=== PATIENT | male | born 1960 | race Caucasian/White ===

== ENCOUNTER 2017-03-27 21:42 | Inpatient (IN) | payer BC ==
[~2017-03-27] VITALS: Ht 175.3 cm; Wt 96.6 kg
[2017-03-27 23:54] LABS: HEMATOCRIT 41.5 % (42.0-54.0); HEMOGLOBIN 13.8 g/dL (13.5-17.5); LYMPHOCYTES 9.1 % (15-50); MCH 29.6 pg (26.0-34.0); MCHC 33.3 g/dL (31.0-37.0); MCV 89.1 fL (80.0-100.0); MEAN PLATELET VOLUME 8.8 fL (7.4-10.4); NEUTROPHILS 83.5 % (40-80); PLATELET COUNT 207 10x3/uL (130-400); RBC 4.66 10x6/uL (4.20-6.10); RDW 13.3 % (11.5-14.5); WBC 4.1 10x3/uL (4.8-10.8)
[2017-03-28] LABS: INR 1.02 (0.85-1.17)
[2017-03-28 00:01] LABS: D-DIMER-QUANTITATIVE 0.63 ug/mLFEU (0.20-0.54)
[2017-03-28 00:03] LABS: ALBUMIN 3.5 g/dL (3.4-5.0); ALKALINE PHOSPHATASE 74 U/L (46-116); ALT (SGPT) 36 U/L (10-68); CALC OSMOLALITY 273 mosm/kg (275-300); CALCIUM 8.8 mg/dL (8.5-10.1); CARBON DIOXIDE 29.5 mmol/L (21.0-32.0); CHLORIDE - SERUM 100 mmol/L (98-107); CREATININE - SERUM 1.2 mg/dL (0.6-1.3); GLUCOSE 110 mg/dL (74-106); POTASSIUM - SERUM 5.3 mmol/L (3.5-5.1); PROTEIN - SERUM 7.5 g/dL (6.4-8.2); SODIUM 136 mmol/L (136-145); UREA NITROGEN 16 mg/dL (7-18); eGFR NON AFRICAN AMERICAN 66 mL/min (90-120)
[2017-03-28 00:16] LABS: CREATINE KINASE 177 UL (21-232); MAGNESIUM - SERUM 1.8 mg/dL (1.8-2.4); PRO BNP 29 pg/mL (0-125); TROPONIN-I < 0.017 ng/mL (0.000-0.060)
[2017-03-28] MEDS ORDERED: LISINOPRIL10 MG PO (02:34)
[2017-03-28] MEDS ORDERED: CYCLOBENZAPRINE10 MG PO (02:35)
[2017-03-28] MEDS ORDERED: PROAIR HFA8.5 GM INH (02:36)
[2017-03-28 03:46] VITALS: BP 140/85; BMI 31.5
[2017-03-28 05:32] LABS: BASOPHILS 0.2 % (0-2); EOSINOPHILS 0 % (0-7); HEMATOCRIT 43.1 % (42.0-54.0); HEMOGLOBIN 14.2 g/dL (13.5-17.5); LYMPHOCYTES 12.9 % (15-50); MCH 30.5 pg (26.0-34.0); MCHC 32.9 g/dL (31.0-37.0); MEAN PLATELET VOLUME 9.6 fL (7.4-10.4); MONOCYTES 8.8 % (2-11); NEUTROPHILS 78.1 % (40-80); PLATELET COUNT 219 10x3/uL (130-400); RBC 4.65 10x6/uL (4.20-6.10); RDW 13.7 % (11.5-14.5); WBC 4.1 10x3/uL (4.8-10.8)
[2017-03-28 05:46] LABS: MCV 92.7 fL (80.0-100.0)
[2017-03-28 06:10] LABS: ALBUMIN 3.5 g/dL (3.4-5.0); BILIRUBIN - TOTAL 0.21 mg/dL (0.2-1.3); CARBON DIOXIDE 27.6 mmol/L (21.0-32.0); CREATININE - SERUM 1.2 mg/dL (0.6-1.3); POTASSIUM - SERUM 4.6 mmol/L (3.5-5.1); PROTEIN - SERUM 7.5 g/dL (6.4-8.2)
[2017-03-28 06:33] VITALS: BP 140/85
[2017-03-28 09:20] VITALS: BP 105/77
[2017-03-28 12:20] VITALS: BP 115/80
[2017-03-28 12:29] VITALS: BMI 31.4
[2017-03-28 16:31] VITALS: Ht 175.3 cm; Wt 96.6 kg
[2017-03-28 16:34] VITALS: BP 124/75
[2017-03-28 20:54] VITALS: BP 125/76
[2017-03-29 00:53] VITALS: BP 131/52
[2017-03-29 04:00] VITALS: BP 128/76
[2017-03-29 08:34] VITALS: BP 119/75
[2017-03-29 12:42] VITALS: BP 124/76
[2017-03-29 20:00] VITALS: BP 141/73
[2017-03-30 06:06] LABS: BASOPHILS 0 % (0-2); EOSINOPHILS 0 % (0-7); HEMATOCRIT 40.2 % (42.0-54.0); HEMOGLOBIN 13.1 g/dL (13.5-17.5); IMMATURE GRANULOCYTES 0.1 % (0-5); LYMPHOCYTES 7.3 % (15-50); MCHC 32.6 g/dL (31.0-37.0); MEAN PLATELET VOLUME 9.3 fL (7.4-10.4); MONOCYTES 4.6 % (2-11); PLATELET COUNT 236 10x3/uL (130-400); RBC 4.37 10x6/uL (4.20-6.10); RDW 13.6 % (11.5-14.5); WBC 8.6 10x3/uL (4.8-10.8)
[2017-03-30 06:19] LABS: CALC OSMOLALITY 280 mosm/kg (275-300); CALCIUM 8.4 mg/dL (8.5-10.1); CARBON DIOXIDE 26.4 mmol/L (21.0-32.0); CHLORIDE - SERUM 102 mmol/L (98-107); GLUCOSE 141 mg/dL (74-106); POTASSIUM - SERUM 4.1 mmol/L (3.5-5.1); SODIUM 138 mmol/L (136-145); UREA NITROGEN 22 mg/dL (7-18); eGFR NON AFRICAN AMERICAN 81 mL/min (90-120)
[2017-03-30 08:04] VITALS: BP 121/77
[2017-03-30 12:23] VITALS: BP 127/69
[2017-03-30] MEDS ORDERED: OMNICEF300 MG PO (13:46)
[2017-03-30] MEDS ORDERED: PREDNISONE20 MG PO (13:46)
[2017-03-30] MEDS ORDERED: TAMIFLU75 MG PO (13:47)
[2017-03-30] MEDS ORDERED: VIBRAMYCIN 100100 MG PO (13:47)
[2017-04-03 21:08] LABS: IMMUNOGLOBULIN E 80 IU/mL (0-100)
== END 2017-03-30 15:55 | disposition home or self-care (01) | DRG 193 ==
LOC: D.ER 21:42 → D.MS 03-28 01:54
PROVIDERS: Family Medicine; Internal Medicine Nephrology; Internal Medicine Pulmonary Disease
DX: J11.00 Influenza due to unidentified influenza virus with unspecified type of pneumonia (principal); J96.21 Acute and chronic respiratory failure with hypoxia; J44.1 Chronic obstructive pulmonary disease with (acute) exacerbation; J44.0 Chronic obstructive pulmonary disease with (acute) lower respiratory infection; J98.11 Atelectasis; I10 Essential (primary) hypertension; J20.9 Acute bronchitis, unspecified; J98.4 Other disorders of lung; E87.5 Hyperkalemia; Z87.891 Personal history of nicotine dependence

== ENCOUNTER → 2017-09-12 12:42 | Outpatient (CLI) | payer BC ==
[2017-03-28 16:31] VITALS: BMI 31.4
[~2017-09-12 12:42] MED LIST: CYCLOBENZAPRINE10 MG PO; LISINOPRIL10 MG PO; OMNICEF300 MG PO; PREDNISONE20 MG PO; PROAIR HFA8.5 GM INH; TAMIFLU75 MG PO; VIBRAMYCIN 100100 MG PO
== END | disposition home or self-care (01) ==
LOC: D.RT 12:42
DX: J44.9 Chronic obstructive pulmonary disease, unspecified (principal); J98.11 Atelectasis

== ENCOUNTER 2018-09-05 15:10 | Inpatient (IN) | payer BC ==
[~2018-09-05] VITALS: Ht 175.3 cm; Wt 92.4 kg
--- NOTE | 2018-09-05 15:42 | NUR ---
RONNIE SPECIMEN OBTAINED, LABELED AT BS AND SENT TO LAB. LAB AT FOR LAB DRAW
[2018-09-05 15:50] LABS: BASOPHILS 0.2 % (0-2); EOSINOPHILS 3.8 % (0-7); HEMATOCRIT 34.3 % (42.0-54.0); HEMOGLOBIN 11.8 g/dL (13.5-17.5); IMMATURE GRANULOCYTES 0.2 % (0-5); LYMPHOCYTES 10.1 % (15-50); MCH 30.4 pg (26.0-34.0); MCHC 34.4 g/dL (31.0-37.0); MCV 88.4 fL (80.0-100.0); MEAN PLATELET VOLUME 8.9 fL (7.4-10.4); MONOCYTES 8.8 % (2-11); NEUTROPHILS 76.9 % (40-80); PLATELET COUNT 250 10x3/uL (130-400); RBC 3.88 10x6/uL (4.20-6.10); WBC 9.9 10x3/uL (4.8-10.8)
[2018-09-05 16:25] LABS: APPEARANCE CLEAR (CLEAR); BILIRUBIN NEGATIVE (NEGATIVE); COLOR YELLOW (YELLOW); GLUCOSE NEGATIVE (NEGATIVE); KETONE NEGATIVE (NEGATIVE); PROTEIN NEGATIVE (NEGATIVE); SPECIFIC GRAVITY 1.015 (1.005-1.020); UROBILINOGEN NORMAL (NORMAL)
[2018-09-05 16:26] LABS: NITRITE NEGATIVE (NEGATIVE); WHITE CELLS - URINE OCC /hpf (0-5)
[2018-09-05 16:27] LABS: BACTERIA FEW /hpf (NONE SEEN)
[2018-09-05 16:34] VITALS: BP 147/80
[2018-09-05 16:36] LABS: ALBUMIN 3.3 g/dL (3.4-5.0); ALKALINE PHOSPHATASE 85 U/L (46-116); ALT (SGPT) 32 U/L (10-68); BILIRUBIN - TOTAL 0.68 mg/dL (0.2-1.3); CALC OSMOLALITY 290 mosm/kg (275-300); CALCIUM 9.3 mg/dL (8.5-10.1); CARBON DIOXIDE 20.1 mmol/L (21.0-32.0); CHLORIDE - SERUM 97 mmol/L (98-107); CREATININE - SERUM 10.8 mg/dL (0.6-1.3); POTASSIUM - SERUM 5.5 mmol/L (3.5-5.1); PROTEIN - SERUM 6.9 g/dL (6.4-8.2); SODIUM 133 mmol/L (136-145); UREA NITROGEN 84 mg/dL (7-18); eGFR NON AFRICAN AMERICAN 5 mL/min (90-120)
--- NOTE | 2018-09-05 16:36 | NUR ---
TO CT VIA STRETCHER WITH DEPUTY ASSESSOR
[2018-09-05 16:37] LABS: GLUCOSE 78 mg/dL (74-106)
[2018-09-05 16:39] LABS: AMYLASE - SERUM 38 U/L (25-115); LIPASE 98 U/L (73-393); TROPONIN-I < 0.017 ng/mL (0.000-0.060)
--- NOTE | 2018-09-05 17:00 | NUR ---
BLADDER SCAN PERFORMED 999 + MLS. VONDA DE LEÓN INFORMED
[2018-09-05 17:13] VITALS: BP 139/71
[2018-09-05 17:19] VITALS: BP 145/73
[2018-09-05 17:51] VITALS: BP 129/76
[2018-09-05 18:02] LABS: APPEARANCE CLEAR (CLEAR); COLOR DK YELLOW (YELLOW); NITRITE POSITIVE (NEGATIVE)
[2018-09-05 18:03] LABS: BILIRUBIN NEGATIVE (NEGATIVE); GLUCOSE NEGATIVE (NEGATIVE); KETONE NEGATIVE (NEGATIVE); PROTEIN NEGATIVE (NEGATIVE); RED CELLS - URINE 25-50 /hpf (0-5); UROBILINOGEN NORMAL (NORMAL)
[2018-09-05 18:04] LABS: BACTERIA FEW /hpf (NONE SEEN)
[2018-09-05 18:31] VITALS: BP 131/70
--- NOTE | 2018-09-05 18:32 | NUR ---
FC EMPTIED 600ML
--- NOTE | 2018-09-05 19:06 | NUR ---
BS REPORT TO BOB FLOREZ BY SBAR FORMAT
--- NOTE | 2018-09-05 19:45 | NUR ---
700 ML OF CLEAR, STRAW YELLOW URINE EMPTIED FROM ROUSE.
[2018-09-05] MEDS ORDERED: SINGULAIR5 MG PO (20:04)
--- NOTE | 2018-09-05 20:10 | NUR ---
PT ARRIVED TO FLOOR BY BED, VITALS STABLE. NO S/S OF DISTRESS NOTED. PT STATES HE SEES DR WALTON REGULARLY HIS BOBBIN MARKER. ANSWERS QUESTIONS APPROPRIATELY. INTRODUCED SELF TO PT. PT DENIES FURTHER NEEDS. CALL LIGHT IN REACH.
--- NOTE | 2018-09-05 20:17 | NUR ---
PT REPORTS HAVING VERY LITTLE TO NO URINARY OUTPUT STARTING August.
[2018-09-05 20:25] VITALS: BP 137/75
--- NOTE | 2018-09-05 23:15 | NUR ---
2300 MLS CONCENTRATED YELLOW OUTPUT EMPTIED FROM ROUSE.
[2018-09-06] VITALS (7 sets, daily range): BP systolic 105–137; BP diastolic 69–77; Ht 175.3 cm; Wt 92.4 kg
--- NOTE | 2018-09-06 03:27 | NUR ---
I have reviewed this patient and I concur with the Shift Assessment completed by the Licensed Practical Nurse today this shift.
--- NOTE | 2018-09-06 06:22 | NUR ---
PT SITTING UP IN BED WITH EYES CLOSED, RR EVEN AND UNLABORED. NO S/S OF DISTRESS NOTED. BED IN LOW POSITION. CALL LIGHT IN REACH. WILL CTM.
[2018-09-06 06:26] LABS: BASOPHILS 0.5 % (0-2); EOSINOPHILS 8.3 % (0-7); HEMATOCRIT 35.5 % (42.0-54.0); HEMOGLOBIN 11.9 g/dL (13.5-17.5); IMMATURE GRANULOCYTES 0.2 % (0-5); LYMPHOCYTES 16.3 % (15-50); MCH 29.8 pg (26.0-34.0); MCHC 33.5 g/dL (31.0-37.0); MCV 88.8 fL (80.0-100.0); MEAN PLATELET VOLUME 9.3 fL (7.4-10.4); MONOCYTES 10.1 % (2-11); NEUTROPHILS 64.6 % (40-80); PLATELET COUNT 242 10x3/uL (130-400); RDW 14.1 % (11.5-14.5)
[2018-09-06 06:30] LABS: WBC 6.3 10x3/uL (4.8-10.8)
[2018-09-06 06:57] LABS: ALBUMIN 2.7 g/dL (3.4-5.0); BILIRUBIN - TOTAL 0.36 mg/dL (0.2-1.3); CARBON DIOXIDE 23.4 mmol/L (21.0-32.0); POTASSIUM - SERUM 5.4 mmol/L (3.5-5.1); PROTEIN - SERUM 6.8 g/dL (6.4-8.2)
[2018-09-06 06:58] LABS: CREATININE - SERUM 6.5 mg/dL (0.6-1.3)
--- NOTE | 2018-09-06 07:37 | NUR ---
PT AWAKE AND ORIENTED, LYING IN BED. C/O LEG CRAMPING, BUT STATES IT'S BETTER NOW AND HE CAN WAIT UNTIL HE RECIEVES HIS MORNING MEDICATIONS TO GET ANY PAIN MEDICINES. NO OTHER COMPLAINTS/CONCENRS/QUESTIONS AT THIS ITME. CL IN REACH, SRX2.
--- NOTE | 2018-09-06 11:21 | NUR ---
I have reviewed this patient and I concur with the Shift Assessment completed by the Licensed Practical Nurse today this shift.
--- NOTE | 2018-09-06 17:43 | NUR ---
PT AWAKE AND ORIENTED, LYING IN BED. STATES HE FEELS BETTER AFTER HIS SHOWER. PT IS HOPEFUL TO GO HOME TOMORROW MORNING, BUT UNDERSTANDS HE'LL NEED TO WAIT FOR THE DOCTOR. NO COMPLAINTS/CONCERNS VOICED AT THIS TIME, CL IN REACH, SRX2.
--- NOTE | 2018-09-06 22:13 | NUR ---
ASSESSMENT COMPLETED AT 1955 HRS. VSS. PT ALERT AND ORIENTED TO PERSON, PLACE AND TIME. COHN. LUNGS CTA. ROUSE DRAINING LARGE AMOUNTS OF ORANGE URINE. IV TO LAC SL. DENIES ANY DISCOMFORT. PT CURRENTLY RESTING WITH EYES CLOSED. RESP EVEN AND REGULAR. SR UP X2, CALL LIGHT WITHIN REACH.
[2018-09-07 00:02] VITALS: BP 131/72
--- NOTE | 2018-09-07 00:41 | NUR ---
PT RESTING WITH EYES CLOSED. RESP EVEN AND REGULAR. SR UP X2, CALL LIGHT WITHIN REACH.
--- NOTE | 2018-09-07 02:20 | NUR ---
PT RESTING WITH EYES CLOSED. RESP EVEN AND REGULAR. SR UP X2, CALL LIGHT WITHIN REACH.
[2018-09-07 03:50] VITALS: BP 111/63
--- NOTE | 2018-09-07 04:16 | NUR ---
PT AWAKE; DENIES ANY DISCOMFORT. REINFORCED TO PT THAT A STOOL SAMPLE IS NEEDED. PT DENIES A BM THIS SHIFT. CALL LIGHT WITHIN REACH.
[2018-09-07 06:13] LABS: BASOPHILS 0.4 % (0-2); EOSINOPHILS 4.8 % (0-7); HEMATOCRIT 37.4 % (42.0-54.0); HEMOGLOBIN 12.6 g/dL (13.5-17.5); IMMATURE GRANULOCYTES 0.1 % (0-5); LYMPHOCYTES 11.3 % (15-50); MCH 29.9 pg (26.0-34.0); MCHC 33.7 g/dL (31.0-37.0); MCV 88.8 fL (80.0-100.0); MEAN PLATELET VOLUME 9.3 fL (7.4-10.4); MONOCYTES 6.6 % (2-11); NEUTROPHILS 76.8 % (40-80); PLATELET COUNT 247 10x3/uL (130-400); RBC 4.21 10x6/uL (4.20-6.10)
[2018-09-07 06:17] LABS: WBC 11.1 10x3/uL (4.8-10.8)
--- NOTE | 2018-09-07 06:22 | NUR ---
VSS THROUGHOUT NIGHT. PT DENIED ANY DISCOMFORT. RESTED WELL DURING SHIFT. NEEDS MET; WILL CONTINUE TO MONITOR.
[2018-09-07 06:34] LABS: ALBUMIN 2.8 g/dL (3.4-5.0); ANION GAP 14.1 mmol/L (8-16); BILIRUBIN - TOTAL 0.46 mg/dL (0.2-1.3); CALCIUM 8.2 mg/dL (8.5-10.1); CARBON DIOXIDE 25.7 mmol/L (21.0-32.0); POTASSIUM - SERUM 4.8 mmol/L (3.5-5.1); PROTEIN - SERUM 6.9 g/dL (6.4-8.2)
[2018-09-07 06:35] LABS: CREATININE - SERUM 2.7 mg/dL (0.6-1.3)
--- NOTE | 2018-09-07 07:08 | NUR ---
PT SLEEPING, DID NOT WAKE I ENTERED, DID NOT FURTHER DISTURB AT THIS TIME. BREATHS EVEN/REGULAR, NO SIGNS/SYMPTOMS OF DISTRESS AT THIS TIME. CL IN REACH, SRX2
[2018-09-07 07:53] VITALS: BP 111/67
[2018-09-07 11:17] VITALS: BP 107/71
--- NOTE | 2018-09-07 12:07 | NUR ---
I have reviewed this patient and I concur with the Shift Assessment completed by the Licensed Practical Nurse today this shift.
[2018-09-07 15:59] VITALS: BP 113/64
--- NOTE | 2018-09-07 18:18 | NUR ---
PT MAR IN BED, ROUSE BAG EMPTIED. STATES HE'S BEEN SNOOZING MOST OF THE DAY AND IS MOSTLY FEELING BETTER. HE'S HOPEFUL DR. FRENCH CAN DO HIS PROCEDURE IN THE NEXT FEW DAYS. CL IN REACH, SRX2
--- NOTE | 2018-09-07 19:42 | NUR ---
INITIAL ROUNDS COMPLETED A T 1915 HRS. PT DENIED ANY DISCOMFORT. CALL LIGHT WITHIN REACH.
[2018-09-07 20:15] VITALS: BP 116/77
--- NOTE | 2018-09-07 21:43 | NUR ---
ASSESSMENT COMPLETED AT 1950 HRS. VSS. ALERT AND ORIENTED TO PERSON, PLACE AND TIME. COHN. LUNGS CTA. IV TO LAC SL. ROUSE DRAINING ORANGE URINE. PT CURRENTLY WATCHING TV. SR UP X2, CALL LIGHT WITHIN REACH.
--- NOTE | 2018-09-08 00:19 | NUR ---
PT RESTING WITH EYES CLOSED. RESP EVEN AND REGULAR. SR UP X2, CALL LIGHT WITHIN REACH.
[2018-09-08 00:33] VITALS: BP 118/73
--- NOTE | 2018-09-08 02:12 | NUR ---
PT RESTING WITH EYES CLOSED. RESP EVEN AND REGULAR. SR UP X2, CALL LIGHT WITHIN REACH.
[2018-09-08 03:45] VITALS: BP 111/77
--- NOTE | 2018-09-08 05:00 | NUR ---
PT AWAKE; DENIES ANY DISCOMFORT. CALL LIGHT WITHIN REACH.
[2018-09-08 05:53] LABS: BASOPHILS 0.3 % (0-2); EOSINOPHILS 6.7 % (0-7); HEMATOCRIT 37.7 % (42.0-54.0); HEMOGLOBIN 12.7 g/dL (13.5-17.5); IMMATURE GRANULOCYTES 0.2 % (0-5); LYMPHOCYTES 16.2 % (15-50); MCH 29.9 pg (26.0-34.0); MCHC 33.7 g/dL (31.0-37.0); MCV 88.7 fL (80.0-100.0); MEAN PLATELET VOLUME 9.2 fL (7.4-10.4); MONOCYTES 8.2 % (2-11); NEUTROPHILS 68.4 % (40-80); PLATELET COUNT 266 10x3/uL (130-400); RBC 4.25 10x6/uL (4.20-6.10); RDW 13.7 % (11.5-14.5); WBC 8.9 10x3/uL (4.8-10.8)
[2018-09-08 06:01] LABS: ALBUMIN 2.8 g/dL (3.4-5.0); ANION GAP 13.9 mmol/L (8-16); BILIRUBIN - TOTAL 0.25 mg/dL (0.2-1.3); CALCIUM 7.7 mg/dL (8.5-10.1); CARBON DIOXIDE 25.6 mmol/L (21.0-32.0); POTASSIUM - SERUM 4.5 mmol/L (3.5-5.1); PROTEIN - SERUM 6.3 g/dL (6.4-8.2)
[2018-09-08 06:03] LABS: CREATININE - SERUM 1.7 mg/dL (0.6-1.3)
--- NOTE | 2018-09-08 06:39 | NUR ---
VSS THROUGHOUT NIGHT. PT DENIED ANY DISCOMFORT. NEEDS MET; WILL CONTINUE TO MONITOR.
--- NOTE | 2018-09-08 06:58 | NUR ---
INITIAL ROUNDING, PATIENT RESTING IN BED ON HIS LEFT SIDE, REPORTING BACK PAIN. ON ROOM AIR, CALL LIGHT IN REACH. ROUSE TO BEDSIDE GRAVITY.
[2018-09-08 07:25] VITALS: BP 104/75
--- NOTE | 2018-09-08 11:04 | NUR ---
HAD REQUESTED THE PATIENTS FLEXERIL BE RESTARTED THIS MORNING AT 0730 FROM VONDA KWONG IN PERSON WHEN SHE WAS ROUNDING. THIS NURSE CALLED HER BACK AT THIS TIME (2153) AND SHE STATED "GO AHEAD AND RESTART IT, I JUST HAVENT GOTTEN TO HIS NOTE YET" AFTER BEING INFORMED THE PATIENT WAS UPSET THAT HE STILL HASNT GOTTEN FLEXERIL. ADDED AT THIS TIME PER VERBAL ORDER, CONTINUE HOME DOSE
[2018-09-08 11:38] VITALS: BP 110/66
--- NOTE | 2018-09-08 13:02 | MORECARE ---
CASE MANAGEMENT DISCHARGE SUMMARY PATIENT: WILLIAM RC UNIT: [id number] ADM DATE: 09/05/18 AGE: 58 : 56 SEX: M ROOM/BED: D.2130 AUTHOR: CAMPBELL MCGHEE PHYSICIAN: REFERRING PHYSICIAN: KWADWO MEDINA DO DATE OF SERVICE: 09/08/18 Discharge Plan Patient Name: WILLIAM CR Facility: [facility]:[place] : 1960 Planned Disposition: Home Anticipated Discharge Date: Discharge Date: Expected LOS: Initial Reviewer: [email or web address] Initial Review Date: 09/08/2018 Generated: 09/08/18 2:02 pm Comments DCP- Discharge Planning Updated by [email or web address]: Liza Polanco on 09/08/18 11:[address] Patient Name: WILLIAM CR Admission Status: ER Accout number: [id number] Admission Date: 09-05-2018 : 1960 Admission Diagnosis: Attending: KWADWO MEDINA Current LOS: 3 Anticipated DC Date: Planned Disposition: Home Primary Insurance: [employer] OUT OF STATE Discharge Planning Comments: CM met with patient to complete initial dc planning assessment. CM educated patient on the CM role and verbal consent given by patient to complete assessment. CM verified patient's address, phone number, and emergency contact phone numbers. Patient lives at home with family and reports he is independent in his care. At discharge patient plans to return home and feels this is a safe discharge. CM discussed availability of home health, rehab services, and medical equipment. Patient denied known discharge needs at this time. . CM will continue to follow and will assist as needed with dc plans/needs. Dietary Aide Cook: Liza Polanco DCPIA - Discharge Planning Initial Assessment Updated by [email or web address]: Liza Polanco on 09/08/18 12:57 pm * Is the patient Alert and Oriented? Yes * How many steps to enter\exit or inside your home? * PCP Jannie * Pharmacy [facility] * Preadmission Environment Home with Family * ADLs Independent * List name and contact numbers for known caregivers / representatives who currently or will assist patient after discharge: UMESH [phone] * Verbal permission to speak to the caregivers and representatives has been obtained from the patient. N/A * Additional services required to return to the preadmission environment? No * Can the patient safely return to the preadmission environment? Yes * Has this patient been hospitalized within the prior 30 days at any hospital? No Patient Name: WILLIAM CR Page 67602 at 1302 All edits/amendments must be made on the electronic document DICTATION DATE: 09/08/18 1301 SLPS: RINKU 09/08/18 1301 RPT#: [id number] DC DATE: STATUS: ADM IN [facility] [address] [place] [address] END OF REPORT
--- NOTE | 2018-09-08 14:36 | NUR ---
DIOGENES AWAKE, SITTING UP IN BED TALKING ON HIS CELL PHONE, SPOUSE AT THE BEDSIDE. HE GAVE A THUMBS UP SIGN WHEN ASKED IF ALL WAS OK AND IF HE NEEDED ANYTHING
[2018-09-08 15:41] VITALS: BP 108/92
--- NOTE | 2018-09-08 19:13 | NUR ---
RECIEVED UP IN BED WITH HOB ELEVATED. EYES OPEN AND TV ON. ALERT AND ORIENTED X4. UP AD CORRY. F/C INTACT WITH CLEAR YELLOW URINE DRAINING TO BEDISDE DRAINAGE SYSTEM. IV TO LT AC SL.. DENIES ANY NEEDS AT THIS TIME.
[2018-09-08 20:44] VITALS: BP 121/68
[2018-09-09 00:45] VITALS: BP 101/60
[2018-09-09 06:39] VITALS: BP 118/70
[2018-09-09 06:41] LABS: ALBUMIN 2.7 g/dL (3.4-5.0); BILIRUBIN - TOTAL 0.31 mg/dL (0.2-1.3); CALCIUM 7.8 mg/dL (8.5-10.1); CARBON DIOXIDE 26.8 mmol/L (21.0-32.0); CREATININE - SERUM 1.6 mg/dL (0.6-1.3); POTASSIUM - SERUM 4.8 mmol/L (3.5-5.1); PROTEIN - SERUM 6.3 g/dL (6.4-8.2)
[2018-09-09 07:21] LABS: BASOPHILS 0.4 % (0-2); HEMATOCRIT 41.3 % (42.0-54.0); IMMATURE GRANULOCYTES 0.3 % (0-5); LYMPHOCYTES 16.4 % (15-50); MCH 29.9 pg (26.0-34.0); MCHC 33.9 g/dL (31.0-37.0); MCV 88.2 fL (80.0-100.0); MONOCYTES 6.2 % (2-11); NEUTROPHILS 71.7 % (40-80); PLATELET COUNT 259 10x3/uL (130-400); RBC 4.68 10x6/uL (4.20-6.10); RDW 13.5 % (11.5-14.5); WBC 9.6 10x3/uL (4.8-10.8)
[2018-09-09 07:45] VITALS: BP 102/68
--- NOTE | 2018-09-09 07:50 | NUR ---
PATIENT IS AWAKE AND SITTING UP IN BED, HE IS REPORTING SOME BACK PAIN AND REQUESTED "SOMETHING FOR IT". CALL LIGHT IN REACH
[2018-09-09 11:44] VITALS: BP 98/60
--- NOTE | 2018-09-09 19:59 | NUR ---
PT RECEIVED A SPRITE REQUESTED. PT DENIES ANY OTHER NEEDS. WILL CPOC
--- NOTE | 2018-09-09 19:59 | NUR ---
PT RESTING IN BED. DENIES ANY NEEDS. NO S/S OF DISTRESS. NAME AND DATE PLACED ON BOARD. PT IS AAO. UP AD CORRY WITH STEADY GAIT. PT WILL CALL FOR ASSIST WHEN NEEDED. WILL CPOC
[2018-09-09 20:00] VITALS: BP 98/64
--- NOTE | 2018-09-09 22:02 | NUR ---
NIGHT MEDICATION GIVEN. PT VERBALIZED UNDERSTANDING OF SINGULAR. ASKED FOR FLEXARIL AND NORCO. PT RECEIVED. 1225 EMPTIED FROM ROUSE. SPOKE WITH PT REGARDING POC. PT VERBALIZED UNDERSTANDING. PT WILL CALL FOR ASSIST WHEN NEEDED. NO S/S OF DISTRESS. WILL CPOC
[2018-09-10] VITALS: BP 98/57
--- NOTE | 2018-09-10 03:07 | NUR ---
PT ASLEEP. RESP EVEN AND UNLABORED. BED LOW AND CALL LIGHT IN REACH. WILL CPOC
[2018-09-10 04:30] VITALS: BP 96/53
--- NOTE | 2018-09-10 06:34 | NUR ---
MORNING MEDICATION GIVEN. EDUCATION GIVEN ON PROTONIX. PT VERBALIZED UNDERSTANDING. PT DENIES ANY NEEDS. NO S/S OF DISTRESS. WILL CPOC
[2018-09-10 06:55] LABS: BASOPHILS 0.5 % (0-2); HEMATOCRIT 40.1 % (42.0-54.0); HEMOGLOBIN 13.6 g/dL (13.5-17.5); IMMATURE GRANULOCYTES 0.3 % (0-5); LYMPHOCYTES 16.9 % (15-50); MCH 29.8 pg (26.0-34.0); MCHC 33.9 g/dL (31.0-37.0); MCV 87.9 fL (80.0-100.0); MONOCYTES 6.7 % (2-11); NEUTROPHILS 69.6 % (40-80); PLATELET COUNT 295 10x3/uL (130-400); RBC 4.56 10x6/uL (4.20-6.10); RDW 13.6 % (11.5-14.5); WBC 9.1 10x3/uL (4.8-10.8)
--- NOTE | 2018-09-10 07:00 | NUR ---
BEDSIDE SHIFT REPORT, PATIENT IS AWAKE AND SITTING ON THE SIDE OF THE BED, ROUSE TO BEDSIDE GRAVITY. PATIENT DENIES PAIN AND STATES HE IS HOPING TO GO HOME SOON. CALL LIGHT IN REACH
[2018-09-10 07:24] LABS: ALBUMIN 2.8 g/dL (3.4-5.0); ANION GAP 13.8 mmol/L (8-16); BILIRUBIN - TOTAL 0.4 mg/dL (0.2-1.3); CALCIUM 7.8 mg/dL (8.5-10.1); CARBON DIOXIDE 23.7 mmol/L (21.0-32.0); CREATININE - SERUM 1.5 mg/dL (0.6-1.3); POTASSIUM - SERUM 4.5 mmol/L (3.5-5.1)
[2018-09-10 09:17] VITALS: BP 101/61
--- NOTE | 2018-09-10 09:28 | NUR ---
DR CHESTER IS ON VACATION AT THIS TIME, THEREFORE THIS NURSE CALLED AND REPORTED TO VONDA KWONG THAT THE DR IS OUT OF TOWN AND THE ORDER TO REMOVE ROUSE "IF" OK WITH DR CHESTER WAS NEEDING CLAIRIFICATION, KEEP OR REMOVE. SHE STATED "OK, I WILL SEND IT HOME WITH HIM".
[2018-09-10] MEDS ORDERED: FLOMAX0.4 MG PO (09:36)
--- NOTE | 2018-09-10 11:57 | MORECARE ---
CASE MANAGEMENT DISCHARGE SUMMARY PATIENT: WILLIAM CR UNIT: [id number] ADM DATE: 09/05/18 AGE: 58 : 56 SEX: M ROOM/BED: D.2130 AUTHOR: TAZDOC PHYSICIAN: REFERRING PHYSICIAN: KWADWO MEDINA DO DATE OF SERVICE: 09/10/18 Discharge Plan Patient Name: WILLIAM CR Facility: [facility]:[place] : 1960 Planned Disposition: Home Anticipated Discharge Date: Discharge Date: Expected LOS: Initial Reviewer: [email or web address] Initial Review Date: 09/08/2018 Generated: 09/10/18 12:57 pm DCP- Discharge Planning Updated by [email or web address]: Liza Polanco on 09/08/18 11:[address] Patient Name: WILLIAM CR Admission Status: ER Accout number: [id number] Admission Date: 09-05-2018 : 1960 Admission Diagnosis: Attending: KWADWO MEDINA Current LOS: 3 Anticipated DC Date: Planned Disposition: Home Primary Insurance: [employer] OUT OF STATE Discharge Planning Comments: CM met with patient to complete initial dc planning assessment. CM educated patient on the CM role and verbal consent given by patient to complete assessment. CM verified patient's address, phone number, and emergency contact phone numbers. Patient lives at home with family and reports he is independent in his care. At discharge patient plans to return home and feels this is a safe discharge. CM discussed availability of home health, rehab services, and medical equipment. Patient denied known discharge needs at this time. . CM will continue to follow and will assist as needed with dc plans/needs. Director Hydrogen Storage Engineering: Liaz Polanco DCPIA - Discharge Planning Initial Assessment Updated by [email or web address]: Liza Polanco on 09/08/18 12:57 pm * Is the patient Alert and Oriented? Yes * How many steps to enter\exit or inside your home? * PCP Jannie * Pharmacy [facility] * Preadmission Environment Home with Family * ADLs Independent * List name and contact numbers for known caregivers / representatives who currently or will assist patient after discharge: UMESH [phone] * Verbal permission to speak to the caregivers and representatives has been obtained from the patient. N/A * Additional services required to return to the preadmission environment? No * Can the patient safely return to the preadmission environment? Yes * Has this patient been hospitalized within the prior 30 days at any hospital? No External Providers External Provider: [facility] Next Contact Date: 09/10/2018 Service Request Date: Service Type: Resolution: Reviewer: Comments: Last DP export: 09/08/18 12:02 pm Patient Name: WILLIAM CR Page 15128 at 1157 All edits/amendments must be made on the electronic document DICTATION DATE: 09/10/18 1156 SYSTEM SUPPORT SPECIALIST: RINKU 09/10/18 1156 RPT#: [id number] DC DATE: STATUS: ADM IN [facility] [address] [place] [address] END OF REPORT
--- NOTE | 2018-09-10 12:05 | MORECARE ---
CASE MANAGEMENT DISCHARGE SUMMARY PATIENT: WILLIAM CR UNIT: [id number] ADM DATE: 09/05/18 AGE: 58 : 56 SEX: M ROOM/BED: D.2130 AUTHOR: TAZDOC PHYSICIAN: REFERRING PHYSICIAN: KWADWO MEDINA DO DATE OF SERVICE: 09/10/18 Discharge Plan Patient Name: WILLIAM CR Facility: [facility]:[place] : 1960 Planned Disposition: Home with Home Health Anticipated Discharge Date: 09/10/18 Discharge Date: Expected LOS: 5 Initial Reviewer: [email or web address] Initial Review Date: 09/08/2018 Generated: 09/10/18 1:05 pm DCP- Discharge Planning Updated by [email or web address]: Liza Polanco on 09/08/18 11:[address] Patient Name: WILLIAM CR Admission Status: ER Accout number: [id number] Admission Date: 09-05-2018 : 1960 Admission Diagnosis: Attending: KWADWO MEDINA Current LOS: 3 Anticipated DC Date: Planned Disposition: Home Primary Insurance: [employer] OUT OF STATE Discharge Planning Comments: CM met with patient to complete initial dc planning assessment. CM educated patient on the CM role and verbal consent given by patient to complete assessment. CM verified patient's address, phone number, and emergency contact phone numbers. Patient lives at home with family and reports he is independent in his care. At discharge patient plans to return home and feels this is a safe discharge. CM discussed availability of home health, rehab services, and medical equipment. Patient denied known discharge needs at this time. . CM will continue to follow and will assist as needed with dc plans/needs. Ammonia Nitrate Operator: Liza Polanco DCPIA - Discharge Planning Initial Assessment Updated by [email or web address]: Liza Polanco on 09/08/18 12:57 pm * Is the patient Alert and Oriented? Yes * How many steps to enter\exit or inside your home? * PCP Jannie * Pharmacy [facility] * Preadmission Environment Home with Family * ADLs Independent * List name and contact numbers for known caregivers / representatives who currently or will assist patient after discharge: GRIFFIN CALVO [phone] * Verbal permission to speak to the caregivers and representatives has been obtained from the patient. N/A * Additional services required to return to the preadmission environment? No * Can the patient safely return to the preadmission environment? Yes * Has this patient been hospitalized within the prior 30 days at any hospital? No Last DP export: 09/10/18 10:57 am Patient Name: WILLIAM CR Page 18136 at 1205 All edits/amendments must be made on the electronic document DICTATION DATE: 09/10/18 1205 TUBE TEST TECHNICIAN: RINKU 09/10/18 1205 RPT#: [id number] DC DATE: STATUS: ADM IN [facility] [address] [place] [address] END OF REPORT
--- NOTE | 2018-09-10 12:12 | MORECARE ---
CASE MANAGEMENT DISCHARGE SUMMARY PATIENT: WILLIAM CR UNIT: [id number] ADM DATE: 09/05/18 AGE: 58 : 56 SEX: M ROOM/BED: D.2130 AUTHOR: CAMPBELL MCGHEE PHYSICIAN: REFERRING PHYSICIAN: KWADWO MEDINA DO DATE OF SERVICE: 09/10/18 Discharge Plan Patient Name: WILLIAM CR Facility: [facility]:[place] : 1960 Planned Disposition: Home with Home Health Anticipated Discharge Date: 09/10/18 Discharge Date: Expected LOS: 5 Initial Reviewer: [email or web address] Initial Review Date: 09/08/2018 Generated: 09/10/18 1:12 pm Comments DCP- Discharge Planning Updated by [email or web address]: Chandler Palacios on 09/10/18 11:[address] Patient Name: WILLIAM CR Encounter No: [id number] : 1960 Primary Insurance: [employer] OUT OF [facility] Anticipated DC Date: 09-10-2018 Planned Disposition: Home with Home Health External Planned Provider: [facility] DCP follow-up note: CM RECEIVED HOME HEALTH ORDER, MET WITH PT IN ROOM TO DISCUSS DISCHARGE NEEDS AND PLANNING. CM DISCUSSED AVAILABILITY OF HOME HEALTH, REHAB SERVICES AND MEDICAL EQUIPMENT. PT WILL ACCEPT HOME HEALTH, DISCHARGE ADDRESS IS [address] [place] [address]. SPOUSE TO TRANSPORT HOME AT DISCHARGE. HOME HEALTH PROVIDER LISTING PROVIDED AND DISCUSSED, PT HAS NO PREFERENCE ON PROVIDER. CHOICE LETTER SIGNED FOR NO PREFERENCE. PT DENIES FURHTER DISCHARGE NEEDS. CM CALLED [facility], , SPOKE TO [facility], PROVIDED REFERRAL INFORMATION, PT TO BE ADMITTED SATURDAY. CM FAXED REFERRAL INFORMATION TO [facility], . AEROPHYSICS ENGINEER NURSE NOTIFIED. BEDSIDE NURSE NOTIFIED. PT HAS BEEN INSTRUCTED BY BEDSIDE NURSE ON HOW TO EMPTY THE ROUSE COLLECTION BAG. JENNIFER Rogel DCP- Discharge Planning Updated by [email or web address]: Liza Polanco on 09/08/18 11:[address] Patient Name: WILLIAM CR Admission Status: ER Accout number: [id number] Admission Date: 09-05-2018 : 1960 Admission Diagnosis: Attending: KWADWO MEDINA Current LOS: 3 Anticipated DC Date: Planned Disposition: Home Primary Insurance: [employer] OUT OF STATE Discharge Planning Comments: CM met with patient to complete initial dc planning assessment. CM educated patient on the CM role and verbal consent given by patient to complete assessment. CM verified patient's address, phone number, and emergency contact phone numbers. Patient lives at home with family and reports he is independent in his care. At discharge patient plans to return home and feels this is a safe discharge. CM discussed availability of home health, rehab services, and medical equipment. Patient denied known discharge needs at this time. . CM will continue to follow and will assist as needed with dc plans/needs. Director Commercial Sales: Liza Polanco DCPIA - Discharge Planning Initial Assessment Updated by [email or web address]: Liza Polanco on 09/08/18 12:57 pm * Is the patient Alert and Oriented? Yes * How many steps to enter\exit or inside your home? * PCP Jannie * Pharmacy [facility] * Preadmission Environment Home with Family * ADLs Independent * List name and contact numbers for known caregivers / representatives who currently or will assist patient after discharge: GRIFFIN CALVO [phone] * Verbal permission to speak to the caregivers and representatives has been obtained from the patient. N/A * Additional services required to return to the preadmission environment? No * Can the patient safely return to the preadmission environment? Yes * Has this patient been hospitalized within the prior 30 days at any hospital? No Coverage Notice Reviewer: [email or web address] - Chandler Palacios Notice Issued Date-Time: 09/10/2018 11:25 Notice Type: Patient Choice Letter Notice Delivered To: Patient Relationship to Patient: Banking Paralegal Name: Delivery Method: HAND - Hand Delivered Yoselin Days: Prior Verbal Notification: Recipient Understood Notice: Yes Recipient Signature: Yes Med Rec Note Co-signed by Attending: Coverage Notice Comment: NO HOME HEALTH PROVIDER PREFERENCE. Last DP export: 09/10/18 11:05 am Patient Name: WILLIAM CR Page 19325 at 1212 All edits/amendments must be made on the electronic document DICTATION DATE: 09/10/18 1211 SKIDDER DRIVER: RINKU 09/10/18 1211 RPT#: [id number] DC DATE: STATUS: ADM IN [facility] [address] [place] [address] END OF REPORT
[2018-09-10 13:34] VITALS: BP 106/53
--- NOTE | 2018-09-10 13:39 | NUR ---
PATIENT STILL WAITING FOR HIS DAUGHTER, NICK, TO PICK HIM UP. PATIENT DMEONSTRATED EMPTING THE ROUSE.
--- NOTE | 2018-09-10 20:30 | NUR ---
PT CAME BACK TO HOSPITAL WITH FAMILY. LEFT FOREARM PIV WAS NOT REMOVED AT DISCHARGE BY NURSE TAKING CARE OF PT, RONY OLIVEIRA RN NURSE BRIDGET RN REMOVED 20G LEFT ARM IV WITH CATH INTACT AND PLACED A BANDAID PT DENIES ANY OTHER QUESTIONS OR CONCERNS REGARDING DISCHARGE. WILL REPORT TO NURSE SUPERVISOR TRAIN OPERATIONS.
== END 2018-09-10 14:24 | disposition home health service (06) | DRG 683 ==
LOC: D.ER 15:10 → D.M2 18:48
PROVIDERS: Family Medicine; ADMIT Family Medicine; ATTEND Family Medicine
DX: N17.9 Acute kidney failure, unspecified (principal); N13.8 Other obstructive and reflux uropathy; E87.0 Hyperosmolality and hypernatremia; F17.213 Nicotine dependence, cigarettes, with withdrawal; N13.1 Hydronephrosis with ureteral stricture, not elsewhere classified; N32.3 Diverticulum of bladder; N32.89 Other specified disorders of bladder; I10 Essential (primary) hypertension; J44.9 Chronic obstructive pulmonary disease, unspecified; N40.1 Benign prostatic hyperplasia with lower urinary tract symptoms; E87.5 Hyperkalemia; K57.30 Diverticulosis of large intestine without perforation or abscess without bleeding

== ENCOUNTER 2018-10-09 08:19 | Day surgery (SDC) | payer BC ==
[2018-10-07 13:24] LABS: HEMATOCRIT 39.5 % (42.0-54.0); HEMOGLOBIN 13.4 g/dL (13.5-17.5); MCH 29.7 pg (26.0-34.0); MCHC 33.9 g/dL (31.0-37.0); MCV 87.6 fL (80.0-100.0); MEAN PLATELET VOLUME 8.8 fL (7.4-10.4); RBC 4.51 10x6/uL (4.20-6.10); RDW 13.7 % (11.5-14.5); WBC 8.4 10x3/uL (4.8-10.8)
[~2018-10-09] VITALS: Ht 175.3 cm; Wt 92.1 kg
[~2018-10-09 08:19] MED LIST changes: +FLOMAX0.4 MG PO; +OMEPRAZOLE20 M1 PO; +SINGULAIR5 MG PO; +TRELEGY ELLIPT1 EACH INH
[2018-10-09 09:08] VITALS: BP 110/65; Ht 175.3 cm; Wt 92.1 kg
[2018-10-09 10:50] LABS: ANION GAP 10.3 mmol/L (8-16); CALCIUM 8.3 mg/dL (8.5-10.1); CARBON DIOXIDE 27.3 mmol/L (21.0-32.0); CREATININE - SERUM 1.2 mg/dL (0.6-1.3); POTASSIUM - SERUM 4.6 mmol/L (3.5-5.1)
--- NOTE | 2018-10-09 13:55 | NUR ---
1345-REC'D FROM RR VIA STRETCHER,SUPINE,AWAKE AND ALERT,DENIES COMPLAINTS. IV PATENT TO RIGHT WRIST AT KVO. AT BEDSIDE,CL IN EASY REACH. DIET TRAY ORDERES D
--- NOTE | 2018-10-09 14:08 | OP ---
PATIENT NAME: WILLIAM CR MEDICAL RECORD: [id number] :[birth year] LOCATION:[facility] ADMISSION DATE: SURGEON: JOSE D CHESTER MD DATE OF OPERATION: 10/09/2018 SURGEON: Jose D Chester MD. ANESTHESIA: Spinal anesthesia by Robert Vanessa CRNA. DIAGNOSIS: Obstructive benign prostatic hypertrophy with urinary retention. PROCEDURE: Transurethral resection of the prostate. FINDINGS: Bilateral lateral lobe obstruction with a tall bladder neck. Heavily trabeculated bladder with inflammatory fronds from the chronic indwelling Mcgill catheter. Single ureteral orifices bilaterally. SPECIMENS: Prostate resection chips. BLOOD LOSS: Minimal. CLINICAL HISTORY: This is a 58-year-old male, who came to the Emergency Room with acute urinary retention. He had a catheter placed and he drained over 3-1/2 liters. He had also developed acute renal failure because of this and his creatinine at the time of presentation was 10.8. With the Mcgill catheter, his renal function improved towards normal. He also had a left epididymitis, which was treated with clindamycin. He comes today to have the transurethral resection of the prostate performed. He is actually a candidate for UroLift, but because he has [employer] insurance and [employer] will not cover the UroLift for urinary retention, we have to proceed with a TURP. He was given Ancef foundation drill operator helper to the OR. DESCRIPTION OF PROCEDURE: The patient was given spinal anesthesia. He was then placed in the lithotomy position and prepped and draped. The 21-Bermudian cystoscope with 30-degree lens was used for visualization. The prostate was obstructive in the lateral lobes, but primarily the obstruction is at the bladder neck. We then switched to the 26-Bermudian bipolar resection scope with the 24-Bermudian resection loop. The resection went from the level of the bladder neck to just proximal to the verumontanum. We started the resection through the bladder neck at the 6 o'clock position. Once we got down to the muscle fibers of the bladder neck, we started working on the lateral lobes. Some of the anterior fibromuscular stroma was also taken down as we encountered some bleeding from this. All these resection chips were removed from the bladder using the Ellik evacuator. We then switched to the button electrode and extensively coagulated the entire raw prostatic surface using the button electrode. At the end of the procedure, there was no obvious bleeding source either arterial or venous. The bladder was left partly full and the scope was removed. We inserted a 20-Bermudian 3-way Mcgill catheter. The balloon was inflated with 20 cc of sterile water. A catheter plug was put into the inflow port. The drainage from the bladder was very light pink in color. If this is how it remains, then he can go home today. I will see him in followup next week to remove the catheter for a voiding trial. TRANSINT:[id number] Voice Confirmation ID: [id number] DOCUMENT ID: [id number] OPERATIVE REPORT [id number] WILLIAM CR, JOSE D Goodman MD at 1408 CC: [id number] DICTATION DATE: 10/09/18 1335 RECORDS MANAGEMENT TECHNICIAN: 10/09/18 1344 REG [facility] [address] [place] [address]
--- NOTE | 2018-10-09 15:23 | NUR ---
1500- TOLERATED FULL LIQUID TRAY.STARTING TO MOVE BILATERAL LOWER EXTREMITIES. IV CONTINUE TO BE PATENT TO RIGHT WRIST. DENIES COMPLAINTS. REPORT GIVEN TO BOB VALENZUELA
--- NOTE | 2018-10-09 17:00 | NUR ---
PATIENT WALKING AROUND ROOM, SENSATION HAS RETURNED TO LEGS, NO UNSTEADINESS WITH WALKING. RIGHT WRIST PIV DC'D WITH TIP INTACT. PATIENT DRESSING IN PERSONAL CLOTHING. 1708 DISCHARGED HOME VIA WHEELCHAIR TO PRIVATE VEHICLE WITH SPOUSE
== END 2018-10-09 17:08 | disposition home or self-care (01) ==
LOC: D.OPS 08:19 → D.PAN 12:00 → D.OPS 12:00 → D.PAN 13:25 → D.OPS 13:25
PROVIDERS: Anesthesiology; ATTEND Urology
DX: N40.1 Benign prostatic hyperplasia with lower urinary tract symptoms (principal); N13.8 Other obstructive and reflux uropathy; R33.8 Other retention of urine; Z01.812 Encounter for preprocedural laboratory examination

== ENCOUNTER → 2018-11-26 19:57 | Outpatient (CLI) | payer BC | END | disposition home or self-care (01) | LOC: D.LABREF 19:57 | PROVIDERS: ATTEND Urology | DX: R31.9 Hematuria, unspecified (principal); D72.819 Decreased white blood cell count, unspecified ==

== ENCOUNTER → 2018-12-10 18:16 | Outpatient (CLI) | payer BC | END | disposition home or self-care (01) | LOC: D.LABREF 18:16 | PROVIDERS: ATTEND Urology | DX: R31.9 Hematuria, unspecified (principal) ==

== ENCOUNTER → 2019-07-29 09:55 | Outpatient (CLI) | payer BC | END | disposition home or self-care (01) | LOC: D.RT 06-15 13:00 → D.RAD 06-15 13:45 → D.RT 09:55 | PROVIDERS: ATTEND Internal Medicine Pulmonary Disease | DX: J44.9 Chronic obstructive pulmonary disease, unspecified (principal) ==

== ENCOUNTER 2020-08-22 07:27 | Day surgery (SDC) | payer BC ==
[~2020-08-22] VITALS: Ht 175.3 cm; Wt 95.3 kg
[2020-08-22 07:55] LABS: BASOPHILS 0.7 % (0-2); EOSINOPHILS 0.5 % (0-7); HEMATOCRIT 46.4 % (42.0-54.0); HEMOGLOBIN 15.7 g/dL (13.5-17.5); LYMPHOCYTES 19.6 % (15-50); MCH 29.7 pg (26.0-34.0); MCHC 33.9 g/dL (31.0-37.0); MCV 87.6 fL (80.0-100.0); MEAN PLATELET VOLUME 7.5 fL (7.4-10.4); MONOCYTES 10.9 % (2-11); NEUTROPHILS 68.3 % (40-80); PLATELET COUNT 251 10x3/uL (130-400); RDW 14.8 % (11.5-14.5); WBC 6.5 10x3/uL (4.8-10.8)
[2020-08-22 08:01] LABS: ANION GAP 13.5 mmol/L (8-16); CALCIUM 8.7 mg/dL (8.5-10.1); CARBON DIOXIDE 26.4 mmol/L (21.0-32.0); CREATININE - SERUM 1.3 mg/dL (0.6-1.3); POTASSIUM - SERUM 4.9 mmol/L (3.5-5.1)
[2020-08-22 08:08] VITALS: BP 111/71; Ht 175.3 cm; Wt 95.3 kg
--- NOTE | 2020-08-22 11:05 | NUR ---
DR RAMIREZ AT BEDSIDE 1115 DC TEACHING TO PT AND . REQUESTS WORK EXCUSE FOR TODAY AND TOMORROW SINCE PT CAN'T DRIVE FOR 24 HRS AND LIVES 3.5 HOURS AWAY. 1130 PIV REMOVED WITH CATHETER INTACT, DRESSING SELF.
--- NOTE | 2020-08-22 11:40 | NUR ---
PT DC'D VIA ACCOMPANIED BY JEFFERSON ROJAS TO POV WITH ALL BELONGINGS AND DC PACKET. DRIVING.
--- NOTE | 2020-08-23 06:38 | OP ---
PATIENT NAME: WILLIAM CR MEDICAL RECORD: [id number] [facility]: SURGEON: ZAHRA RAMIREZ DO DATE OF OPERATION: 08/22/2020 PROCEDURE: Colonoscopy with polypectomy. INDICATION FOR PROCEDURE: Screening for colorectal cancer. SCOPE: Olympus video pediatric colonoscope. MEDICATIONS: Propofol 400 mg IV per anesthesia. ESTIMATED BLOOD LOSS: Minimal. COMPLICATIONS: None. FINDINGS: Informed consent was given. The patient was made comfortable with the above medication. After reaching an adequate level of sedation by slow IV push, the patient was placed on his left side. A digital rectal examination was performed and it was normal. The endoscope was advanced under direct visualization through the rectum to the cecum, confirmed by the presence of the appendiceal orifice and ileocecal valve. The terminal ileum was briefly intubated. The endoscope was slowly withdrawn and the mucosa was carefully examined. The prep quality was good. There were multiple polyps visualized on today's examination. Eleven benign-appearing sessile polyps were located in the rectum. They were all removed using a hot snare. They ranged in size from 3-5 mm in diameter. In the sigmoid colon, there were 9 separate benign-appearing sessile polyps, which ranged in size from 3-8 mm in diameter. They were all removed using a hot snare. In the descending colon, there were 2 benign-appearing sessile polyps, which ranged in size from 3-5 mm in diameter. They were removed using a hot snare. In the ascending colon, there was a benign-appearing sessile polyp, which measured approximately 9 mm in diameter. It was removed using a hot snare. There was evidence of moderate diverticulosis involving the sigmoid colon. Retroflexion was performed in the rectum with visualization of grade II internal hemorrhoids without bleeding. Of note, the patient did also have external hemorrhoids. The endoscope was withdrawn from the patient. The patient tolerated the procedure well and there were no complications. IMPRESSIONS: 1. Multiple polyps as described above, removed using a hot snare. 2. Moderate diverticulosis of the sigmoid colon. 3. Internal and external hemorrhoids without bleeding. PLAN AND RECOMMENDATIONS: 1. Discharge home when recovery parameters are met. 2. Follow up biopsy specimen results. 3. High fiber diet. 4. Continue current medications. 5. Recall colonoscopy in 1 year. TRANSINT:[id number] Voice Confirmation ID: [id number] DOCUMENT ID: [id number] OPERATIVE REPORT [id number] WILLIAM CR NATHAN A DO at 0638 CC: [id number] DICTATION DATE: 08/22/20 1051 HYDRAULIC RIVETER: 08/22/20 1238 [facility] 08/22/20 [place] [id number] [place] [id number]
== END 2020-08-22 11:40 | disposition home or self-care (01) ==
LOC: D.OPS 07:27
PROVIDERS: Anesthesiology; ATTEND Internal Medicine Gastroenterology
DX: K63.5 Polyp of colon (principal); Z12.11 Encounter for screening for malignant neoplasm of colon; K57.30 Diverticulosis of large intestine without perforation or abscess without bleeding; K64.4 Residual hemorrhoidal skin tags; K64.8 Other hemorrhoids